=== PATIENT | male | born 1995 | race Two or more races ===

== ENCOUNTER 2017-11-09 05:02 | Emergency (ER) | payer MEDICAID ==
[~2017-11-09] VITALS: Ht 170.2 cm; Wt 72.6 kg
[2017-11-09 07:48] VITALS: BP 100/72
[2017-11-09] MEDS ORDERED: LEVOFLOXACIN 250 MG TAB PO ONE (08:30)
== END 2017-11-09 08:47 | disposition home or self-care (01) ==
LOC: ER 05:06
DX: J20.9 Acute bronchitis, unspecified (principal); J45.909 Unspecified asthma, uncomplicated; F17.210 Nicotine dependence, cigarettes, uncomplicated
CPT/HCPCS: 71010

== ENCOUNTER 2019-01-23 17:57 | Emergency (ER) | payer MEDICAID ==
[~2019-01-23] VITALS: Ht 170.2 cm; Wt 81.6 kg
[2019-01-23 18:06] VITALS: BP 123/80
[2019-01-23 18:47] LABS: Basophils # (auto) 0.1 uL; Basophils % (auto) 0.7 % (0.0-2.0); Eosinophils # (auto) 0.3 uL; Hematocrit 47.2 % (41.0-53.0); Hemoglobin 16.3 g/dL (13.5-17.5); Lymphocytes # (auto) 2.4 uL; Lymphocytes % (auto) 30.3 % (10.0-50.0); Mean Corpuscular Hemoglobin 32.3 pg (28.0-32.0); Mean Corpuscular Hgb Conc. 34.6 g/dL (32.0-36.0); Mean Corpuscular Volume 93.4 fL (80.0-100.0); Monocytes # (auto) 0.5 uL; Monocytes % (auto) 6.4 % (0.0-12.0); Neutrophils # (auto) 4.7 uL; Neutrophils % (auto) 58.6 % (37.0-80.0); Nucleated Red Blood Cells % 0.1 %; Platelet Count (auto) 263 10^3/uL (140-450); Red Blood Cells 5.05 10^6/uL (4.5-5.90); Red Cell Distribution Width 13.4 % (11.8-14.3); White Blood Cell 7.9 10^3/uL (4.4-10.8)
[2019-01-23 18:58] LABS: Alanine Aminotransferase 33 U/L (16-61); Albumin 4.1 g/dL (3.4-5.0); Anion Gap 8 (5-15); Aspartate Aminotransferase 27 U/L (15-37); BUN/Creatinine Ratio 17.5; Blood Urea Nitrogen 22 mg/dL (7-18); Calcium 8.6 mg/dL (8.5-10.1); Carbon Dioxide 26 mmol/L (21-32); Chloride 105 mmol/L (98-107); GFR African American 91 mL/min; GFR Non-African American 75 mL/min; Glucose 100 mg/dL (74-106); Potassium 3.6 mmol/L (3.5-5.1); Sodium 139 mmol/L (136-145)
[2019-01-23 19:00] LABS: Alcohol, Urine < 3.0 mg/dL (0-5); Amphetamine Screen, Urine NEGATIVE (NEGATIVE); Benzodiazephine Screen, Urine NEGATIVE (NEGATIVE); Cannabinoid Screen, Urine NEGATIVE (NEGATIVE); Cocaine Screen, Urine NEGATIVE (NEGATIVE); Opiate Scree,Urine NEGATIVE (NEGATIVE); Phencyclidine Screen, Urine NEGATIVE (NEGATIVE)
[2019-01-23 19:02] LABS: Alkaline Phosphatase 91 U/L (45-117); Bilirubin, Total 0.4 mg/dL (0.2-1.0); Total Protein 7.7 g/dL (6.4-8.2)
[2019-01-23 19:03] LABS: Barbiturate Scree,Urine NEGATIVE (NEGATIVE)
[2019-01-23 19:06] LABS: Urine Amorphous Crystal FEW /hpf (None Seen); Urine Bacteria NONE SEEN /hpf (None Seen); Urine Blood Negative /uL (Negative); Urine Specific Gravity 1.028 (1.001-1.035); Urine WBC 3 /hpf (0 - 3)
== END 2019-01-23 23:52 | disposition left against medical advice (07) ==
LOC: ER 18:09
DX: R07.89 Other chest pain (principal); Z53.21 Procedure and treatment not carried out due to patient leaving prior to being seen by health care provider
CPT/HCPCS: 36415; 71046; 80053; 80307; 81001; 84484; 85025

== ENCOUNTER 2019-12-09 23:37 | Emergency (ER) | payer SELFPAY ==
[~2019-12-09] VITALS: Ht 165.1 cm; Wt 81.6 kg
[2019-12-09 23:55] VITALS: BP 105/69
== END 2019-12-10 04:00 | disposition left against medical advice (07) ==
LOC: ER 23:42
DX: J02.9 Acute pharyngitis, unspecified (principal); Z53.21 Procedure and treatment not carried out due to patient leaving prior to being seen by health care provider
CPT/HCPCS: 71045

== ENCOUNTER 2025-04-25 06:21 | Emergency (ER) | payer MEDICAID, OTHER ==
[~2025-04-25] VITALS: Ht 170.2 cm; Wt 78.2 kg
[2025-04-25 06:30] VITALS: BP 130/71; PULSE 88; TEMP 97.9
--- NOTE | 2025-04-25 06:44 | ED.PDOC ---
Eye-HPI HPI Comments HPI: This is a 29 year old male presenting to the ED with chief complaint of right eye foreign body. Patient reports that he had been using a Dremel shaving off metal pieces 2 days ago without eye protection when all of a sudden, a metal shaving flew into his right eye. Patient relays that he didn't have much pain at the time, however, over time it became more irritated and is now painful. Patient admits to fentanyl and methamphetamine use yesterday. Patient is not wearing contact lenses. Patient denies any blurred vision, vision loss, or further injury at this time. Initial Vitals BP: 130/71 HR: 88 RR: 20 O2: 95% Temp: 97.9F Past Medical History: Asthma, Tetanus vaccine up to date Past Surgical History: Denies Social History: Occasional ETOH, + smoking, and +Fentanyl and methamphetamine use. Medications: Denies Allergies: Penicillin HPI: Poor Historian. Past Medical History: Past Surgical History: REVIEW OF SYSTEMS: CONSTITUTIONAL: Denies acute: fever, diaphoresis, chills, generalized weakness. HEAD: Denies acute: headache, photophobia Eyes: Denies acute: Double vision, vision loss, eye discharge. EARS: Denies acute: tinnitus, hearing loss, ear discharge, ear pain, THROAT: Denies acute: sore throat, swelling, difficulty swallowing , pain with swallowing, change in voice. NECK: Denies acute: neck pain, neck swelling, stiff neck. HEART: Denies acute : chest pain, palpitations, LUNGS: Denies acute: SOB, wheezing, cough, hemoptysis ABDOMEN: Denies acute: abdominal pain, Nausea, Vomiting, diarrhea, melena , hematemesis, hematochezia SKIN: Denies acute: rash, redness, lesions, itchiness. EXTREMITIES: Denies acute: calf pain, numbness, tingling, weakness, denies pain in extremity. Denies acute: Low back pain. Neuro: Denies acute: focal neurological deficit, motor or sensory focal neurological deficit, tremors, seizure like activity, confusion, dizziness, change in mental status, loss of bowel or bladder function, cauda equina like symptoms. : Denies acute: dysuria, hematuria, flank pain, increase in urinary frequency. PSYCH: Denies acute: hallucination, suicidal ideation, homicidal ideation. PHYSICAL EXAM: General: ----mild----acute distress, awake and alert. Head: normocephalic, atraumatic. Neck: supple, trachea is midline, no swelling. Throat: Normal phonation. Eyes:, no purulent discharge, no proptosis, no icterus. Noted right conjunctivitis. There is noted rust ring at the cornea. Fluorescein staining was performed in the [facility]. Tetracaine ophthalmic drops were applied for topical anesthesia. Rust ring was removed successfully with a an 18 gauge needle. Patient tolerated the procedure well. Patient advice to go directly to the eye doctor today for follow up. Heart: regular rate, regular rhythm, no significant murmur appreciated. Lungs: no apparent respiratory distress, Able to speak in full sentences. No wheezing, no rhonchi, no crackles. No stridors Clear to auscultation bilaterally. Abdomen: non tender to palpation, non distended, soft, no guarding, no rebound, + bowel sounds. Neuro: Awake, Alert, oriented to name, self, situation, follows commands GCS=15. Speech is normal. Skin: no petechia, no purpura, no cyanosis, non-pale, not jaundice. Lower extremities: --no - Pitting edema no deformity, no focal swelling, no calf TTP. Makes eye contact. moves all four extremities. Face: no apparent facial droop. Ambulating in the ED independently. PERRLA, EOM-I No nystagmus. ED COURSE: Chief Complaint: Eye Problem Time Seen by MD: 06:41 Primary Care Provider: None Reviewed Notes: Medications, Allergies Allergies: Uncoded Allergies: PCN (Allergy, Unknown, 04/22/14) Home Meds Active Scripts Ciprofloxacin HCl (Ophth) (Ciprofloxacin Hydrochlori) 0.3 % Debbi, 0.3 % OP Q6HR for 5 Days, #60 ML Applied two drops with the affected eye every six hours. Prov:NEETU SANTO DO 04/25/25 Information Source: Patient Mode of Arrival: Ambulatory Was a procedure done? Was a procedure done?: Yes Sedation Sedation?: No Rust Ring Removal Indication: Rust ring Location: Right Corneal Removed with: Needle (18g) Assisted with Slit lamp: Yes Post Procedure: Removed Informed consent obtained: Yes Risks/benefits/alt described: Yes Notes Fluorescein stain with Tobias lamp shows uptake consistent with rust ring. Rust ring removed with 18g needle. Patient tolerated procedure well. 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 If you are unable to see your primary care/family doctor, please return to our emergency room for re-assessment and re-evaluation in 1 to 2 days. Return to the emergency room here in our facility or to the nearest ER [facility] if your symptoms change or worsen. CONSULTATIONS: you MUST Follow-up for consultation as soon as possible with: -ophthalmology eye doctor in 1-2 days. Please call for appointment. You MUST call the consultants office yourself to make an appointment. You may need to arrange that through your insurance and/or your primary/family doctor. If you are unable to see the quality consultant in 1 to 2 days, you must return to our emergency room (or any other ER of your choice) for re-assessment and re-evaluation. Adequate fluid hydration. e-Prescriptions Ciprofloxacin HCl (Ophth) (Ciprofloxacin Hydrochlori) 0.3 % Debbi 0.3 % OP Q6HR for 5 Days, #60 ML Applied two drops with the affected eye every six hours. Prov: NEETU SANTO DO 04/25/25 Discharged With: Self Critical Care Note Critical Care Time?: No I personally scribed for NEETU SANTO DO ([email or web address]) on 04/25/25 at 06:44. Electronically submitted by Kevin Haywood ([email or web address]). I personally scribed for NEETU SANTO DO ([email or web address]) on 04/25/25 at 06:51. Electronically submitted by Kevin Haywood ([email or web address]). I personally scribed for NEETU SANTO DO ([email or web address]) on 04/25/25 at 07:19. Electronically submitted by Kevin Haywood ([email or web address]). I personally scribed for NEETU SANTO DO ([email or web address]) on 04/25/25 at 07:19. Electronically submitted by Kevin Haywood ([email or web address]). I personally scribed for NEETU SANTO DO ([email or web address]) on 04/25/25 at 07:28. Electronically submitted by Kevin Haywood ([email or web address]). NEETU SANTO DO Apr 25, 2025 06:44
[2025-04-25] MEDS ORDERED: CIPR0.3S67 OP (07:26)
[2025-04-25] MEDS: FLUORESCEIN SOD OPTH TEST STRIP ONE (07:27)
[2025-04-25 08:01] VITALS: RESP 98; O2SAT 96
== END 2025-04-25 08:02 | disposition home or self-care (01) ==
LOC: ER 06:21
DX: T15.01XA Foreign body in cornea, right eye, initial encounter (principal); F15.10 Other stimulant abuse, uncomplicated; F11.19 Opioid abuse with unspecified opioid-induced disorder; F17.200 Nicotine dependence, unspecified, uncomplicated; Z88.0 Allergy status to penicillin; J45.909 Unspecified asthma, uncomplicated; Z79.899 Other long term (current) drug therapy; W26.8XXA Contact with other sharp object(s), not elsewhere classified, initial encounter; Y93.89 Activity, other specified; Y92.89 Other specified places as the place of occurrence of the external cause; Y99.8 Other external cause status
CPT/HCPCS: 65220